=== PATIENT | female | born 1935 | race Caucasian/White ===

== ENCOUNTER 2023-03-09 13:49 | Outpatient (CLI) | payer MEDICARE, OTHER, SELFPAY ==
--- NOTE | 2023-03-09 14:30 | MR_ITS ---
WS: [id number] MRI LUMBAR SPINE NONCONTRAST HISTORY: pain COMPARISON: None available. TECHNIQUE: Sagittal and axial multisequence imaging is submitted. Mild anterior wedging of T5. Mild LEFT curvature lumbar spine. Severe disc space narrowing and degeneration at L2-3. Marrow edema within the L2 and L3 vertebral bod ies. There is no fluid along the disc space to suggest discitis. Mild anterior wedging of L4. Mild an terior wedging of L1. Conus terminates normally at L1-2 disc level. L1-L2: Normal. L2-L3: Marked annular disc bulging with ligamentum flavum hypertrophy and facet arthritis. Disc asymm etrically extends to the LEFT. Moderate bilateral foraminal stenosis, RIGHT greater than LEFT. Modera te central and subarticular recess encroachment. Most significant encroachment upon the traversing L3 nerve roots. L3-L4: Marked annular disc bulging and osteophytic ridging with severe ligamentum flavum and facet hy pertrophy. Mild osteophytic ridging. Severe central and bilateral subarticular recess stenosis. Moder ate bilateral foraminal stenosis. Most significant encroachment upon the traversing L4 nerve roots. L4-L5: Marked annular disc bulging with severe ligamentum flavum and facet arthritis. Trefoil appeara nce of the thecal sac. There is again subarticular recess encroachment. Traversing L5 nerve roots are being displaced. Severe central with bilateral subarticular recess and moderate foraminal stenosis. L5-S1: Mild annular disc bulging and osteophytic ridging. Small foraminal osteophytes. Mild encroachm ent upon the subarticular recesses and S1 nerve roots. There is a small disc protrusion in the RIGHT subarticular recess. Mild RIGHT renal atrophy. Incompletely visualized abdominal aorta. Possible aneurysm. MR/MR lumbar spine wo con* [id number] IMPRESSION: 1. Large amount of edema within the L3 and L4 vertebral bodies. Probably react sylvia edema. Osteomyelitis is not completely excluded but there is no fluid in th e disc to suggest discitis. 2. Multilevel significant central and bilateral subarticular recess stenosis. 3. Severe central with bilateral subarticular recess stenosis at L3-4 and L4-5 and moderate foraminal narrowing. There is significant encroachment upon the t raversing L4 and L5 nerve roots respectively. 4. Moderate bilateral foraminal stenosis at L2-3, RIGHT greater than LEFT. Mod erate central and subarticular recess encroachment. Most significant encroachme nt upon the traversing L3 nerve roots. 5. Possible small disc protrusion in the RIGHT subarticular recess at L5-S1. 6. Mild chronic anterior wedging of L1 and L4.
== END 2023-03-09 13:50 | disposition home or self-care (01) ==
LOC: RAD 13:52
PROVIDERS: PCP Nurse Practitioner Family; Visit Provider Physician Assistant
DX: M16.11 Unilateral primary osteoarthritis, right hip (principal); M51.36 Other intervertebral disc degeneration, lumbar region; S32.010A Wedge compression fracture of first lumbar vertebra, initial encounter for closed fracture; X58.XXXA Exposure to other specified factors, initial encounter; M48.061 Spinal stenosis, lumbar region without neurogenic claudication
CPT/HCPCS: 72148

== ENCOUNTER → 2023-04-02 13:37 | Outpatient (BNVA) | payer MEDICARE, OTHER, SELFPAY | PROVIDERS: PCP Nurse Practitioner Family; Visit Provider Physician Assistant | DX: M54.9 Dorsalgia, unspecified (principal); M25.561 Pain in right knee | CPT/HCPCS: 73560; 99213 ==

== ENCOUNTER → 2023-05-18 10:09 | Outpatient (BNVA) | payer MEDICARE, OTHER, SELFPAY | PROVIDERS: PCP Nurse Practitioner Family; Visit Provider Anesthesiology Pain Medicine | DX: M48.061 Spinal stenosis, lumbar region without neurogenic claudication (principal); M79.604 Pain in right leg; M79.605 Pain in left leg | CPT/HCPCS: 99213 ==

== ENCOUNTER → 2023-06-18 10:45 | Outpatient (BNVA) | payer MEDICARE, OTHER, SELFPAY | PROVIDERS: PCP Nurse Practitioner Family; Visit Provider Anesthesiology Pain Medicine | DX: M48.061 Spinal stenosis, lumbar region without neurogenic claudication (principal) | CPT/HCPCS: 99214 ==

== ENCOUNTER → 2023-07-13 13:01 | Outpatient (BNVA) | payer MEDICARE, OTHER, SELFPAY | PROVIDERS: PCP Nurse Practitioner Family; Visit Provider Anesthesiology Pain Medicine | DX: M47.816 Spondylosis without myelopathy or radiculopathy, lumbar region (principal) | CPT/HCPCS: 64493; 64494; 64495; J1030; J3490 ==

== ENCOUNTER → 2023-07-27 08:51 | Outpatient (BNVA) | payer MEDICARE, OTHER, SELFPAY | PROVIDERS: PCP Nurse Practitioner Family; Visit Provider Anesthesiology Pain Medicine | DX: M48.061 Spinal stenosis, lumbar region without neurogenic claudication; M16.11 Unilateral primary osteoarthritis, right hip | CPT/HCPCS: 99214 ==

== ENCOUNTER → 2023-08-12 11:10 | Outpatient (BNVA) | payer MEDICARE, OTHER, SELFPAY | PROVIDERS: PCP Nurse Practitioner Family; Visit Provider Anesthesiology Pain Medicine | DX: M17.11 Unilateral primary osteoarthritis, right knee; M48.061 Spinal stenosis, lumbar region without neurogenic claudication | CPT/HCPCS: 20610; 99214; J1030; J3490 ==

== ENCOUNTER → 2023-08-20 09:12 | Outpatient (BNVA) | payer MEDICARE, OTHER, SELFPAY | PROVIDERS: PCP Nurse Practitioner Family; Visit Provider Nurse Practitioner Family | DX: I10 Essential (primary) hypertension (principal) | CPT/HCPCS: 80053; 80061 ==

== ENCOUNTER → 2023-09-03 13:33 | Outpatient (BNVA) | payer MEDICARE, OTHER, SELFPAY | PROVIDERS: PCP Nurse Practitioner Family; Visit Provider Nurse Practitioner Family | DX: D22.5 Melanocytic nevi of trunk (principal); L81.4 Other melanin hyperpigmentation; L85.3 Xerosis cutis; L57.0 Actinic keratosis | CPT/HCPCS: 17004; 99213 ==

== ENCOUNTER → 2023-09-09 10:51 | Outpatient (BNVA) | payer MEDICARE, OTHER, SELFPAY | PROVIDERS: PCP Nurse Practitioner Family; Visit Provider Anesthesiology Pain Medicine | DX: M25.561 Pain in right knee (principal); M48.061 Spinal stenosis, lumbar region without neurogenic claudication | CPT/HCPCS: 99214 ==

== ENCOUNTER → 2023-12-10 13:02 | Outpatient (BNVA) | payer MEDICARE, OTHER, SELFPAY | PROVIDERS: PCP Nurse Practitioner Family; Visit Provider Anesthesiology Pain Medicine | DX: M17.11 Unilateral primary osteoarthritis, right knee (principal); S89.90XA Unspecified injury of unspecified lower leg, initial encounter; S89.91XA Unspecified injury of right lower leg, initial encounter; X58.XXXA Exposure to other specified factors, initial encounter; M48.061 Spinal stenosis, lumbar region without neurogenic claudication | CPT/HCPCS: 20610; 99214; J1030; J3490 ==

== ENCOUNTER → 2023-12-29 13:24 | Outpatient (BNVA) | payer MEDICARE, OTHER, SELFPAY | PROVIDERS: PCP Nurse Practitioner Family; Referring Provider Anesthesiology Pain Medicine; Visit Provider Physician Assistant | DX: M25.561 Pain in right knee (principal); M17.11 Unilateral primary osteoarthritis, right knee | CPT/HCPCS: 73560; 73565; 99204 ==

== ENCOUNTER → 2024-02-02 14:41 | Outpatient (BNVA) | payer MEDICARE, OTHER, SELFPAY | PROVIDERS: PCP Nurse Practitioner Family; Visit Provider Family Medicine | DX: Z01.818 Encounter for other preprocedural examination (principal) | CPT/HCPCS: 80053; 81003; 85025 ==

== ENCOUNTER 2024-02-05 14:19 | Outpatient (CLI) | payer MEDICARE, OTHER, SELFPAY ==
--- NOTE | 2024-02-05 15:00 | CT_ITS ---
WS: [id number] CT RIGHT KNEE, NONCONTRAST TECHNIQUE: Noncontrast CT of the RIGHT knee to include the RIGHT hip and ankle. [facility] CLINICAL INFORMATION: M17.11 - Unilateral primary osteoarthritis, right knee COMPARISON: None. DLP: [id number] scans at [facility] use at least one of these dose optimization techniques: automated e xposure control; mA and/or kV adjustment per patient size (includes targeted exams where dose is matc hed to clinical indication); or iterative reconstruction. FINDINGS: Advanced tricompartmental arthritis RIGHT knee. Hypertrophic patella. Tiny suprapatellar ef fusion. Prior postoperative changes LEFT TKA. Intramedullary mukesh and screw fixation LEFT hip. Osteopenia. Mod erate to advanced joint arthritis RIGHT hip. Sigmoid diverticulosis. Vascular calcification. IMPRESSION: Images obtained for preoperative purposes.
== END 2024-02-05 14:20 | disposition home or self-care (01) ==
LOC: RAD 14:20
PROVIDERS: PCP Nurse Practitioner Family; Visit Provider Student in an Organized Health Care Education/Training Program
DX: M17.11 Unilateral primary osteoarthritis, right knee (principal)
CPT/HCPCS: 73700

== ENCOUNTER 2024-02-15 14:36 | Inpatient (IN) | payer MEDICARE, OTHER, SELFPAY ==
[2024-02-15] VITALS (16 sets, daily range): BP systolic 73–156; BP diastolic 47–86; PULSE 60–87; RESP 16–18; TEMP 36.1–36.9; O2SAT 94–98; BMI 29.2
--- NOTE | 2024-02-15 10:19 | ANES.PREANE2 ---
Pre-Anesthetic Assessment Height/Weight: Height 1.6 m Operation Date: 02/15/24 11:40 Proposed Procedures p Mendez Robot Total Knee Arthroplasty(Right) - Rashad Martinez DO Familial anesthetic complications: None Was Beta Diamond taken within 24 hours: N/A Was Clonidine taken within 24 hours: N/A Last intake: > 8 hrs Social No alcohol and No tobacco Exam alert, oriented x 3, clear to auscultation bilaterally and regular rate & rhythm Airway Mallampati: Class II Dentition: other (multiple missing) Pulmonary Asthma CV/HEM Hypertension RBBB GI Gastroesophageal Reflux Disease Anesthetic Plan ASA status: 3 Anesthesia: Regional (specify below) Risk of > 500 ml blood loss (7ml/kg in children): No Medications/Allergies Home Medications Medication Instructions Recorded Confirmed Last Taken Type rollator walker #1 ea 03/20/23 01/13/24 Unknown Rx acetaminophen 325 mg capsule 325 mg PO QID PRN Pain 04/23/23 02/15/24 02/14/24 History montelukast 10 mg tablet 10 mg PO QDAY #90 tabs 07/13/23 02/12/24 02/12/24 Rx (Singulair) potassium chloride 20 mEq 20 meq PO DAILY #90 tabs 07/17/23 02/15/24 02/14/24 Rx tablet,extended release(part/cryst) (Klor-Con M) propranolol 80 mg capsule,24 80 mg PO QDAY #90 caps 07/17/23 02/15/24 02/15/24 Rx hr,extended release simvastatin 10 mg tablet See Rx Instructions .Route 07/17/23 02/15/24 02/14/24 Rx .COMPLEX #90 tabs Hinged Knee Brace #1 ea 09/09/23 01/13/24 Unknown Rx denosumab 60 mg/mL subcutaneous 60 mg SUBCUT .every six months 09/18/23 02/12/24 Unknown Rx syringe (Prolia) osteoporosis #1 mL olopatadine 0.1 % eye drops See Rx Instructions .Route 11/03/23 02/15/24 02/14/24 Rx .COMPLEX #5 mL tolterodine 4 mg capsule,extended 4 mg PO QDAY #90 caps 12/07/23 02/15/24 02/15/24 Rx release 24 hr (Detrol LA) esomeprazole magnesium 40 mg See Rx Instructions .Route 01/11/24 02/15/24 02/15/24 Rx capsule,delayed release .COMPLEX #90 caps buspirone 7.5 mg tablet 7.5 mg PO DAILY #90 tabs 01/13/24 02/15/24 02/14/24 Rx zolpidem 10 mg tablet 10 mg PO DAILY PRN insomnia #30 01/13/24 02/15/24 02/14/24 Rx tabs Allergies Allergy/AdvReac Type Severity Reaction Status Date / Time Iodinated Contrast Media Allergy Unknown Verified 02/12/24 12:38 Sulfa (Sulfonamide Allergy unknown Verified 02/12/24 12:38 Antibiotics) [facility] Anesthesia Medical History Closed hip fracture requiring operative repair Hyperlipidemia Hypokalemia Asthma Gastroesophageal reflux disease Surgical History Hx of cholecystectomy Family History Father No family history of disorders Other Right knee pain Social History Smoking and tobacco/nicotine status: never used tobacco/nicotine Alcohol intake: never Substance/Drug Use: never Adopted: No Caregiver/support person: No Lives independently: Yes service: No Current occupational status: retired Do you think of yourself as: Straight/Heterosexual Current gender identity: Female Data Anesthesia 02/15/24 10:35 02/15/24 10:35 Cardiac Studies: No Data to Display
[2024-02-15] MEDS: ketorolac 30 mg/mL INJ IVP (10:48)
[2024-02-15] MEDS: lactated ringers 500 ML IV (10:48)
[2024-02-15 10:51] LABS: Basophils % 0.5 %; Eosinophils # 0.4 10^3/uL (0.0-0.8); Eosinophils % 4.5 %; Hematocrit 38.9 % (36-47); Lymphocytes # 2.1 10^3/uL (0.8-4.8); Mean Corpuscular HGB Conc 32.6 g/dL (30-55); Mean Platelet Volume 10.7 fL (7.4-10.4); Monocytes # 0.8 10^3/uL (0.2-0.9); Monocytes % 9.7 %; Neutrophils # 4.65 10^3/uL (1.8-7.7); Neutrophils % 58.8 %; Nucleated Red Blood Cells % 0 %; Platelet Count 243 10^3/cmm (157-399); Red Blood Count 4.23 10^6/uL (3.85-5.65); Red Cell Distribution Width 14.8 % (12.1-15.1); White Blood Count 7.92 10^3/uL (3.29-11.43)
--- NOTE | 2024-02-15 11:00 | ANES.PROC ---
Anesthesia Procedures Procedure/Date: 02/15/24 Nerve Block ^: Nerve Block 1: Main Anesthesia: spinal anesthesia block Time Out Performed: Yes Consent: requested by attending/covering physician, from patient, from other, risks and benefits reviewed and patient agrees to proceed Nerve block location: adductor canal (R) Anesthesia monitors applied: pulse oximetry, EKG, BP cuff and oxygen Nerve block position: supine Anesthetic Used: ropivicaine 0.5% (30 ml) Ultrasound used to: recognize landmarks and visualize and ID femerol nerve Nerve Stimulator Used?: No Interscalene/Femoral BLK: 4 stimuplex 21 g needle used for position and inplane approach, visualize local anesthetic spread and no vascular puncture identified Injection: neg aspiration of heme Patient Tolerated Procedure: well Complications: none
[2024-02-15] MEDS: scopolamine 1.5 Patch 1 PATCH TRANSDERMA (11:05)
[2024-02-15] MEDS: sodium chloride 0.9% 1,000 ML 30 ML IV (11:06)
[2024-02-15] MEDS: acetaminophen 1,000 MG/100 ML PIGGYBACK 400 MG IV ×3 (11:06→23:35)
--- NOTE | 2024-02-15 11:12 | PM.HP ---
Providers/Chief Complaint Admitting Physician: Rashad Martinez DO Primary Care Provider: GALINA Emanuel Chief Complaint: M17.11 History of Present Illness Ashly Lynn is a 88 year old female patient has severe right knee degenerative joint disease with significant pain she is failed conservative treatment and is here today for right total knee arthroplasty. No change in overall health. Denies any urinary symptoms. Cleared our preoperative clearance process. Review of Systems General: Reports: 10 or more systems reviewed and unremarkable except in HPI and below Medications/Allergies Home Medications Medication Instructions Recorded Confirmed Last Taken Type rollator walker #1 ea 03/20/23 01/13/24 Unknown Rx acetaminophen 325 mg capsule 325 mg PO QID PRN Pain 04/23/23 02/15/24 02/14/24 History montelukast 10 mg tablet 10 mg PO QDAY #90 tabs 07/13/23 02/12/24 02/12/24 Rx (Singulair) potassium chloride 20 mEq 20 meq PO DAILY #90 tabs 07/17/23 02/15/24 02/14/24 Rx tablet,extended release(part/cryst) (Klor-Con M) propranolol 80 mg capsule,24 80 mg PO QDAY #90 caps 07/17/23 02/15/24 02/15/24 Rx hr,extended release simvastatin 10 mg tablet See Rx Instructions .Route 07/17/23 02/15/24 02/14/24 Rx .COMPLEX #90 tabs Hinged Knee Brace #1 ea 09/09/23 01/13/24 Unknown Rx denosumab 60 mg/mL subcutaneous 60 mg SUBCUT .every six months 09/18/23 02/12/24 Unknown Rx syringe (Prolia) osteoporosis #1 mL olopatadine 0.1 % eye drops See Rx Instructions .Route 11/03/23 02/15/24 02/14/24 Rx .COMPLEX #5 mL tolterodine 4 mg capsule,extended 4 mg PO QDAY #90 caps 12/07/23 02/15/24 02/15/24 Rx release 24 hr (Detrol LA) esomeprazole magnesium 40 mg See Rx Instructions .Route 01/11/24 02/15/24 02/15/24 Rx capsule,delayed release .COMPLEX #90 caps buspirone 7.5 mg tablet 7.5 mg PO DAILY #90 tabs 01/13/24 02/15/24 02/14/24 Rx zolpidem 10 mg tablet 10 mg PO DAILY PRN insomnia #30 01/13/24 02/15/24 02/14/24 Rx tabs Allergies Allergy/AdvReac Type Severity Reaction Status Date / Time Iodinated Contrast Media Allergy Unknown Verified 02/12/24 12:38 Sulfa (Sulfonamide Allergy unknown Verified 02/12/24 12:38 Antibiotics) PFSH Acute PFSH: Medical History Closed hip fracture requiring operative repair Hyperlipidemia Hypokalemia Asthma Gastroesophageal reflux disease Surgical History Hx of cholecystectomy Family History Father No family history of disorders Other Right knee pain Social History Smoking and tobacco/nicotine status: never used tobacco/nicotine Alcohol intake: never Substance/Drug Use: never Adopted: No Caregiver/support person: No Lives independently: Yes service: No Current occupational status: retired Do you think of yourself as: Straight/Heterosexual Current gender identity: Female Vitals/I&O/Wt Last Vital Signs Temp 97.7 F 02/15/24 10:27 Pulse 70 02/15/24 10:27 Resp 16 02/15/24 10:27 BP 116/79 02/15/24 11:05 Pulse Ox 98 02/15/24 10:27 O2 Del Method Room Air 02/15/24 10:27 Weight last 48 hrs Weight 165 lb Physical Exam Narrative: Examination of the right knee demonstrates no wounds or swelling or signs of infection. Mild palpable joint effusion decreased knee range of motion pain with diffusely about the knee with a 5 degree varus deformity clinically. Right lower extremity warm well-perfused Data 02/15/24 10:35 02/15/24 10:35 A&P Assessment and plan (1) Degenerative joint disease of right knee: Plan Plan to proceed to the OR today for right total knee arthroplasty Mendez robotic assisted. Patient understands incidence procedure the risk benefits complication alternatives with surgery. Risk of surgery include not limited to make a better make it worse injury to nerves vessels or tendons, arthrofibrosis, infection, wound issues. Understanding risk of surgery she elects to proceed all questions answered at this time. Attestations Medical Necessity Statement*: Status post right total knee arthroplasty, ongoing postoperative care given patient's age and comorbidities. Coding Level of Care Code Acute Code for [facility] Diagnoses Degenerative joint disease of right knee M17.11
[2024-02-15 11:23] LABS: Anion Gap 15.6 (5-19); Blood Urea Nitrogen 18 mg/dL (8-23); Calcium 9.6 mg/dL (8.5-10.5); Carbon Dioxide 26 mmol/L (22-29); Chloride 97 mmol/L (98-107); Creatinine Clr Calc Pharmacy 41.0602; Glucose 81 mg/dL (65-115); Osmolality Calculated 279 mOsm/kg (285-295); Potassium 4.6 mmol/L (3.5-5.1); Sodium 134 mmol/L (136-145)
[2024-02-15] MEDS: ceFAZolin 2,000 MG in sodium chloride 0.9% (plus) 50 ML 100 MG IV ×2 (11:39→18:37)
[2024-02-15] MEDS: tranexamic acid 1,000 mg/10mL SDV 1000 MG IV (12:20)
[2024-02-15] MEDS: tranexamic acid 1,000 mg/10mL SDV 1000 MG XX (12:53)
[2024-02-15] MEDS: ROPivacaine 0.2% Premix 100 mL 200 MG INTRA-ARTI (12:53)
[2024-02-15] MEDS: EPINEPHrine 1 mg/mL INJ XX (12:53)
[2024-02-15] MEDS: ketorolac 30 mg/mL INJ XX (12:53)
--- NOTE | 2024-02-15 14:18 | W.PM.BPON ---
Date of Procedure: 02/15/2024 Surgeon: Rashad Martinez DO Technical Support Director(s): Albert Martinez PA-C Procedure(s) performed: Right total knee arthroplasty?Mendez robotic assisted Findings of the procedure(s): Right knee degenerative joint disease, procedure went as planned without any issues or complications underwent successful right total knee arthroplasty Estimated blood loss: 125 mL Specimen(s) removed: Tibia, patella and femur bone cuts removed Post-operative diagnosis: Right knee severe degenerative joint disease
--- NOTE | 2024-02-15 14:19 | P.OP_ITS ---
Operative Report Date of procedure: February 15, 2024 Surgeon: Rashad Martinez DO Property Developer: Albert Martinez PA-C: PA was necessary for assistance in this case with leg positioning retraction and protection of neurovascular structures as well as assistance in implantation wound closure and dressing application. Anesthesia: Spinal Procedure: Preoperative diagnosis: Right knee degenerative joint disease post-op diagnosis: Same Procedure done: Right total knee arthroplasty, cemented?robotic assisted Mendez Implants: Hartland triathlon size 4 femur CR cemented?right João triathlon size? 3 tibia universal baseplate cemented João triathlon asymmetric patella size 29 mm Hartland triathlon polyethylene 9mm Surgeon: Rashad Martinez DO Estimated blood loss: 125 mL Tourniquet 14minutes IV fluids: 1000 mL Urine output: 600mL Complications: None Condition: stable Disposition: floor Brief History: Patient is a 88-year-old female with with chronic?right knee degenerative joint disease.? Patient has been worked up in the outpatient setting in the orthopedic office at this point time through shared decision making given his [id number] arthritis as well as failed conservative treatment, and pt would like to proceed with a?right total knee arthroplasty.? Through shared decision making elected to proceed with surgical intervention for?right total knee arthroplasty.? We talked about continued conservative treatment and surgical intervention as far as the?risk benefits complications alternatives surgical and nonsurgical treatment options.? At this point time understanding patient?risks with surgery he agrees to proceed with surgical intervention.? Once again??risk with surgery include but are not limited to make it better make it worse blood clot, heart attack, stroke, on the table, infection, injury to nerves or vessels, persistent pain, arthrofibrosis, implant failure.? Understanding these?risks patient agrees to proceed with surgical intervention consent was obtained in the office.? All questions answered. Procedure: Patient was seen and evaluated in the preoperative holding area.? Consent was?reviewed and signed with patient with plan for?right total knee arthroplasty.? All questions answered.? Correct extremity marked.? Patient seen and evaluated by the anesthesia department and once cleared for surgery was taken back to the operative suite.? Patient was placed into a supine position on the OR table.? All bony prominences were well-padded.? Patient was appropriately secured to the bed.? Patient underwent anesthesia per the anesthesia department.? Patient?received spinal anesthesia and? Fajardo catheter was placed.? A nonsterile tourniquet was applied to the?right thigh.? At this point in time a final timeout performed.? Patient?received appropriate preoperative antibiotics and TXA. Next the?right lower extremity was then prepped and draped in standard orthopedic fashion. Esmarch tourniquet was used exsanguinate the?right lower extremity.? Tourniquet was insufflated to 250 mmHg. A standard anterior incision was made over midline of the knee.? Sharp scalpel excision through skin and subcutaneous tissue full-thickness skin flaps were made.? Fascia was elevated off of the extensor?retinaculum was stable with medial parapatellar arthrotomy was then made.? The performed standard s equential?releases..? Immediately on entry into the joint patient was found to have severe eburnated bone and tricompartmental arthritic changes noted.? With significant osteophyte formation.? Next the the patella was then stuffed and the knee was then flexed.?? After 14 minutes with tourniquet being up it was found to be a venous tourniquet and it was subsequently left down throughout the entirety of the case. Maria Elena was placed superiorly around the anterior aspect of the femur this was freed of synovium and I subsequently then placed by 2 femur pins to establish my femur arrays for the [employer]?robot.? These were then placed bicortically and? femur array was then appropriately secured with appropriate visualization.? Next attention was turned towards the tibial?rays.? These were then drilled sequentially bicortically in parallel fashion and intraincisional.? I then placed my guide as well as my tibial array on in place.? This was appropriately secured and had excellent visualization with the [employer]?robot.? Next the tibial checkpoint as well as femur checkpoint were then placed.? At this point time I then subsequently established my head center as well as my medial lateral malleoli as well as my checkpoints.? Next utilizing standard Mendez technology I then mapped out the appropriate points and confirmation points around the femur as well as the tibia in standard fashion.? Once this was then done I then?removed all osteophytes in preparation for dynamic testing.? All osteophytes were?removed as well as I?removed the ACL and the PCL was excised due to its significant tearing and degeneration noted.? At this point time the knee was brought into full extension and we performed our standard evaluation of our gap balancing stressing his ligaments and extension as well as flexion appropriate adjustments were made to have appropriate gap balancing in both flexion and extension.? This plan for final counts.? We get a preoperative plan evaluating our implants which was a size 4 femur and a size 3 tibia.? Next we brought in the Mendez?robot and sequentially made our femur cuts.? All excess bony cuts were then?removed.? Finally we made our tibial cut.? Once this was done a standard PCL?retractor was then placed into this position I excised the medial and lateral meniscus.? The tibial cut was then subsequently?removed all excess bony debris was?removed.? I then utilized a lamina tibco developer and?remove the posterior osteophytes.? At this point time sized the tibia and confirmed this was a size 3.? I utilized our blunt probe to establish?rotation of tibial implant.? Once this was done I then placed my tibia size 3 trial in appropriate position and then subsequently placed tibial pins to hold this into place placed a size 9 mm poly as well as a size 4 femur which was appropriately impacted in place knee was then subsequently brought into extension. Trials were then assessed, this was stable with varus valgus stress in extension as well as had symmetrical translation when brought into flexion demonstrating symmetrical gaps. I had excellent balance gaps in flexion and extension with varus and valgus stresses.? At this point I was satisfied with these implants these were then verified and opened on the back table size 3 tibia, size4 femur,? size 9 mm polythickness.? We did confirm appropriate gap balancing and stresses as well as alignment utilizing? Mendez and were satisfied with this plan.? ?At this point time with my trials in place I then towel clip the patella everted this made appropriate measurements subsequently utilizing freehand technique performed by patellar?resurfacing this was confirmed to be appropriate?resection and subsequently sized to be a 29 mm asymmetric.? My drill peg guides were then clamped and appropriate position and appropriate position in the patella for appropriate tracking and parallel with the joint.? Pegs were drilled trial implant was placed and the knee was then subsequently?ranged and found to have excellent patellar tracking.? Femur pegs were then drilled.? Satisfied with our tibial placement?rotation I then utilized the keel punch and prepped the tibia.? At this point time all of our trial implants were?removed.? All checkpoints as well as guidepins and arrays were?removed and appropriate counts made.? The wound bed? was thoroughly irrigated and dried and prepped for cementation.? Cement was mixed on the back table.? Once cement was?ready this was then covered onto the tibia and the tibial baseplate was then impacted and all excess cement was?removed.? Next the polyethylene was then impacted into place on the tibial baseplate.? Next cement was placed onto the femur as well as under the femur implants and impacted in to place and all excess cement was extruded and?removed.? Knee was taken into full extension? to clear all excess cement was?removed.? Warm saline was placed over the joint.? I then towel clip patella and dried for cementation. cemented the patella into place.? This was all clamped and the cement was allowed to cure.? Thorough irrigation performed with pulse lavage.? I then placed my periarticular injection while the cement was curing.? Once cured the knee was taken through?range of motion and had excellent stability and gaps were balanced in flexion and extension.? Tourniquet was then deflated. hemostasis satisfactory with electrocautery.? Next I then subsequently closed the capsule with Ethibond suture as well as a?running strata fix suture.? Knee was then taken through?range of motion 30 times.? Next the skin was then closed in layered fashion of?running stratifix sutures of deep and subcutenous tissue and skin.? ?closed in flexion and Prineo glue was then placed over the incision this allowed to cure.? Incision was covered with Silverlon, with ABDs soft?roll and Heriberto wrap.? Patient was then awakened from anesthesia and taken to PACU in stable condition. Disposition: Patient taken to PACU in stable condition will be admitted to the floor for pain control PT/OT weight-bear as tolerated?right lower extremity dressing changes as needed, DVT prophylaxis. Pain control. Patient will?receive appropriate postoperative antibiotics. patient will be seen today by the internal medicine team for medical management.? Patient will follow up with the office in 2 weeks.? Patient understands agrees with current plan.? All questions answered.
--- NOTE | 2024-02-15 14:28 | PM.PACU ---
PACU note Narrative: Patient is an 88 -year-old female just underwent a right total knee arthroplasty. Pt transferred to PACU in stable condition. Dressing is dry. pt is awake and alert. pt can wiggle toes and plantarflex and dorsiflex foot. pt able to perform straight leg raise, Femoral nerve intact. Distal tibial pulses are palpable toes are warm and well-perfused. Cap refill is normal and under 2 seconds. Sensation to foot is intact. Pain is controlled. Exam: awake Disposition: admitted
--- NOTE | 2024-02-15 14:35 | XRR_ITS ---
PROCEDURE INFORMATION: Exam: XR Right Knee Exam date and time: 02/15/2024 1:38 PM Age: 88 years old Clinical indication: Device placement; Joint replacement hardware; Prior surgery; Surgery date: Post-operative (0-2 days); Surgery type: S/P tka R; Additional info: S/P tka R, 2 views submitted, changed to 2 view TECHNIQUE: Imaging protocol: Radiologic exam of the right knee. Views: 1 or 2 views. COMPARISON: CT knee RT [facility] [id number] 02/05/2024 2:55 PM FINDINGS: Bones/joints: No fracture or dislocation or hardware complication. Soft tissues: Postsurgical changes of the soft tissues. Extensive vascular calcifications. XR/XR knee RT 1-2V [id number] IMPRESSION: No hardware complication.
--- NOTE | 2024-02-15 15:02 | SUR.PHASEI ---
15:00 GOOD ROM AND SENSATION OF RIGHT FOOT.PT ASSESSED BY DOCTOR Rush.
--- NOTE | 2024-02-15 15:25 | ANE.PACU2 ---
Inpatient post-anesthesia follow up: Airway intact: Yes Vital signs: Temperature 98.0 F Pulse Rate 67 Respiratory Rate 16 Blood Pressure 96/63 Pulse Oximetry 96 Oxygen Delivery Me thod Room Air Oxygen Flow Rate Fraction of Inspir ed Oxygen Hydration adequate: Yes Nausea and vomiting: No Pain level: 1 Mental status: Baseline
--- NOTE | 2024-02-15 15:47 | P.CONIM_ITS ---
Providers/Reason For Consult 2 Consulting Physician/Specialty*: Dr. Churchill/internal medicine Reason for Consult*: Medical comorbidities Attending Physician: Rashad Martinez DO Primary Care Provider: GALINA Emanuel History of Present Illness History of Present Illness Ashly Lynn is a 88 year old female with past medical history of hypertension, osteoarthritis who underwent right total knee arthroplasty with orthopedic team today. Patient had an estimated blood loss of around 125 cc. Medical team is requested to manage medical comorbidities. Procedure done under spinal anesthesia. On examination patient is awake and alert. Denies any nausea vomiting, headache, saturating well on room air. States she checks her bp at home and usually runs around 110/70s. Denies any problems right now. Review of Systems 2 General: Reports: 10 or more systems reviewed and unremarkable except in HPI and below Const: Denies: fever(s), chills, body aches, change in appetite, change in weight, malaise, night sweats, diaphoresis, change in sleep pattern, daytime sleepiness or snoring Eyes: Denies: change in vision, blurry vision, photophobia, eye discomfort or eye discharge ENMT: Denies: throat pain, enlarged tonsils, hoarseness, mouth pain, oral sores, dry mouth, tinnitus, nasal congestion or post nasal drip Card: Denies: chest pain, palpitations, irregular heart rhythm, edema, swelling of feet/ankles, lightheadedness, syncope, pre-syncope, dyspnea on exertion, orthopnea, leg pain with exertion or acrocyanosis Resp: Denies: dyspnea, productive cough, non-productive cough, wheezing, stridor, pain on inspiration, change in phlegm color, hemoptysis or chest congestion GI: Denies: abdominal pain, nausea, vomiting, hematemesis, coffee ground emesis, dysphagia, heartburn, diarrhea, constipation, bloating, GI cramping, change in bowel habits, pain on defecation, hematochezia or melena : Denies: flank pain, dysuria, urinary frequency, urinary urgency, urinary hesitancy, nocturia or hematuria Musc: Denies: neck pain, back pain, extremity pain, joint pain, joint swelling, joint redness, joint stiffness or limited range of motion Neuro: Denies: headache(s), numbness in extremities, weakness in extremities, sensory changes, lack of coordination, difficulty walking, frequent falls, dizziness, vertigo, confusion, Slurred speech present, difficulty communicating thoughts or seizure-like activity Psych: Denies: anxiety, depression, mood swings, panic attacks, hopelessness or irritability Endo: Denies: polyuria, polydipsia, tired all the time, cold intolerance, excessive sweating, flushing or heat intolerance Mason/Lymph: Denies: easy bruising or easy bleeding All/Imm: Denies: tongue swelling, facial swelling or acute wheezing Medications/Allergies Home Medications Medication Instructions Recorded Confirmed Last Taken Type rollator walker #1 ea 03/20/23 01/13/24 Unknown Rx acetaminophen 325 mg capsule 325 mg PO QID PRN Pain 04/23/23 02/15/24 02/14/24 History montelukast 10 mg tablet 10 mg PO QDAY #90 tabs 07/13/23 02/12/24 02/12/24 Rx (Singulair) potassium chloride 20 mEq 20 meq PO DAILY #90 tabs 07/17/23 02/15/24 02/14/24 Rx tablet,extended release(part/cryst) (Klor-Con M) propranolol 80 mg capsule,24 80 mg PO QDAY #90 caps 07/17/23 02/15/24 02/15/24 Rx hr,extended release simvastatin 10 mg tablet See Rx Instructions .Route 07/17/23 02/15/24 02/14/24 Rx .COMPLEX #90 tabs Hinged Knee Brace #1 ea 09/09/23 01/13/24 Unknown Rx denosumab 60 mg/mL subcutaneous 60 mg SUBCUT .every six months 09/18/23 02/12/24 Unknown Rx syringe (Prolia) osteoporosis #1 mL olopatadine 0.1 % eye drops See Rx Instructions .Route 11/03/23 02/15/24 02/14/24 Rx .COMPLEX #5 mL tolterodine 4 mg capsule,extended 4 mg PO QDAY #90 caps 12/07/23 02/15/24 02/15/24 Rx release 24 hr (Detrol [place]) esomeprazole magnesium 40 mg See Rx Instructions .Route 01/11/24 02/15/24 02/15/24 Rx capsule,delayed release .COMPLEX #90 caps buspirone 7.5 mg tablet 7.5 mg PO DAILY #90 tabs 01/13/24 02/15/24 02/14/24 Rx zolpidem 10 mg tablet 10 mg PO DAILY PRN insomnia #30 01/13/24 02/15/24 02/14/24 Rx tabs Allergies Allergy/AdvReac Type Severity Reaction Status Date / Time Iodinated Contrast Media Allergy Unknown Verified 02/12/24 12:38 Sulfa (Sulfonamide Allergy unknown Verified 02/12/24 12:38 Antibiotics) PFSH Acute 2 PFSH: Medical History Closed hip fracture requiring operative repair Hyperlipidemia Hypokalemia Asthma Gastroesophageal reflux disease Surgical History Hx of cholecystectomy Family History Father No family history of disorders Other Right knee pain Social History Smoking and tobacco/nicotine status: never used tobacco/nicotine Alcohol intake: never Substance/Drug Use: never Adopted: No Caregiver/support person: No Lives independently: Yes service: No Current occupational status: retired Do you think of yourself as: Straight/Heterosexual Current gender identity: Female Vitals/I&O/Wt Last Vital Signs Temp 98.0 F 02/15/24 15:21 Pulse 60 02/15/24 15:21 Resp 16 02/15/24 15:21 BP 96/63 02/15/24 15:21 Pulse Ox 95 02/15/24 15:21 O2 Del Method Room Air 02/15/24 15:21 02/15/24 02/15/24 02/15/24 06:59 14:59 22:59 Intake Total 1050 / 1050 Balance 1050 / 1050 Weight last 48 hrs Weight 74.843 kg Weight 74.843 kg Physical Exam 2 Narrative: General: No acute distress, AO x3 HEENT: PERRLA, pupils bilaterally equal and reactive Chest: Normal vesicular breath sounds, no added sounds, equal good air entry bilaterally CVS: S1-S2 regular, no murmurs, no tachycardia, no gallops, no rubs Abdomen: Soft, nontender, no organomegaly, bowel sounds present Neuro: No focal deficits, no facial deformity, AO x3, power 5/5 in all limbs Data 02/15/24 10:35 02/15/24 10:35 A&P Assessment and plan (1) Encounter for postoperative care: Monitor hemoglobin. Perioperative antibiotics, pain medication, anticoagulation, physical therapy, discharge planning as per primary team. Keep mean artery pressure over 65 with goal blood pressure less than 140/90 mmHg. Oxygen supplementation keeping saturation over 92%. (2) Asthma: Currently on room air. DuoNeb as needed. Plan Hypertension: Goal blood pressure less than 140/90 mmHg. Blood pressure is borderline for now. Hold off on home dose of propranolol. Will restart as per blood pressures. Full code Regular diet when okay with primary team. Eliquis when okay with primary team for DVT prophylaxis Protonix OPD prophylaxis Consult Attestations 2 Medical Necessity Statement: As per primary team. Diagnoses Encounter for postoperative care Z48.89 Asthma J45.909
[2024-02-15] MEDS: lactated ringers 1,000 ML 100 ML IV (16:04)
[2024-02-15] MEDS: mupirocin oint 22 gm 1 APPLIC NASAL (17:12)
[2024-02-15] MEDS: calcium carb-vit d 600mg/400unit 1 Tablet 1 EACH PO (17:13)
[2024-02-15] MEDS: docusate sodium 100 mg Capsule PO (17:13)
[2024-02-15] MEDS: iron polysaccharide complex 150 mg Capsule PO (17:13)
[2024-02-15] MEDS: chlorhexidine gluconate 0.12% Btl 473 mL 30 ML MUCOUS MEM ×2 (17:13→20:36)
[2024-02-15] MEDS: tranexamic acid 1,000 MG/100 ML PREMIX 600 MG IV (17:16)
[2024-02-15] MEDS: HYDROmorphone 1 mg/mL INJ 1 mL 0.5 MG IVP (17:29)
[2024-02-15 18:38] LABS: Iron 95 ug/dL (37-145); Percent Saturation 24.3 % (20-50); Thyroid Stimulating Hormone 4.83 uIU/mL (0.27-4.20); Total Iron Binding Capacity 390 mcg/dl; Unsaturated Iron Binding 295 ug/dL (112-347); Vitamin B12 960 pg/mL (232-1245)
[2024-02-15] MEDS: atorvastatin 40 mg Tablet PO (20:36)
[2024-02-15] MEDS: oxyCODONE 5 mg IR Tab/Cap PO (20:42)
[2024-02-16] VITALS (10 sets, daily range): BP systolic 82–143; BP diastolic 50–85; PULSE 62–91; RESP 15–66; TEMP 36.3–36.8; O2SAT 93–96; BMI 32.9
[2024-02-16] MEDS: oxyCODONE 5 mg IR Tab/Cap PO ×4 (02:05→20:51)
[2024-02-16] MEDS: lactated ringers 1,000 ML 100 ML IV ×2 (02:06→10:55)
[2024-02-16] MEDS: ceFAZolin 2,000 MG in sodium chloride 0.9% (plus) 50 ML 100 MG IV ×2 (03:18→10:55)
[2024-02-16 05:52] LABS: Basophils % 0.1 %; Eosinophils % 0.2 %; Hematocrit 25.8 % (36-47); Lymphocytes # 1.3 10^3/uL (0.8-4.8); Lymphocytes % 12.9 %; Mean Corpuscular HGB Conc 32.9 g/dL (30-55); Mean Corpuscular Volume 91.2 fl (85-98); Mean Platelet Volume 10.8 fL (7.4-10.4); Monocytes # 0.8 10^3/uL (0.2-0.9); Monocytes % 7.6 %; Neutrophils # 7.95 10^3/uL (1.8-7.7); Neutrophils % 78.7 %; Nucleated Red Blood Cells % 0 %; Platelet Count 188 10^3/cmm (157-399); Red Blood Count 2.83 10^6/uL (3.85-5.65); Red Cell Distribution Width 14.6 % (12.1-15.1)
[2024-02-16] MEDS: acetaminophen 1,000 MG/100 ML PIGGYBACK 400 MG IV (06:29)
[2024-02-16 06:35] LABS: Estmated Average Glucose 103; Hemoglobin A1C 5.2 % (4.0-6.0)
[2024-02-16 06:43] LABS: Alanine Aminotransferase 8 U/L (0-33); Albumin Level 3.3 g/dL (3.5-5.2); Alkaline Phosphatase 50 U/L (35-105); Anion Gap 15.4 (5-19); Aspartate Amino Transferase 13 U/L (0-32); Blood Urea Nitrogen 17 mg/dL (8-23); Calcium 8.6 mg/dL (8.5-10.5); Carbon Dioxide 21 mmol/L (22-29); Chloride 106 mmol/L (98-107); Creatinine Clr Calc Pharmacy 39.2592; Globulin 1.9 g/dL (1.3-4.6); Glucose 107 mg/dL (65-115); Osmolality Calculated 288 mOsm/kg (285-295); Potassium 4.4 mmol/L (3.5-5.1); Sodium 138 mmol/L (136-145); Total Bilirubin 0.2 mg/dL (0.15-1.2); Total Protein 5.2 g/dL (6.6-8.7)
[2024-02-16 06:44] LABS: Folate Level 18.5 ng/mL (4.8-37.3)
[2024-02-16] MEDS: pantoprazole DR 40 mg Tablet PO (08:27)
[2024-02-16] MEDS: mupirocin oint 22 gm 1 APPLIC NASAL ×2 (08:27→17:00)
[2024-02-16] MEDS: calcium carb-vit d 600mg/400unit 1 Tablet 1 EACH PO ×2 (08:27→17:00)
[2024-02-16] MEDS: chlorhexidine gluconate 0.12% Btl 473 mL 30 ML MUCOUS MEM (08:27)
[2024-02-16] MEDS: iron polysaccharide complex 150 mg Capsule PO ×2 (08:27→17:00)
[2024-02-16] MEDS: docusate sodium 100 mg Capsule PO ×2 (08:27→17:00)
[2024-02-16] MEDS: multivitamin therapeutic Tablet 1 TAB PO (08:27)
[2024-02-16] MEDS: apixaban 5 mg Tablet 2.5 MG PO ×2 (08:29→17:00)
[2024-02-16] MEDS: BuSPIRONE 10 mg Tablet 7.5 MG PO (08:30)
--- NOTE | 2024-02-16 08:47 | PC.PHAR ---
PT STATES SHE TAKES CARE OF HER OWN MEDICATIONS-PT STATES BEFORE SURGERY SHE WAS TAKING VITAMIN E BUT STATES NOT TAKEN FOR AT LEAST 21 DAYS-PT STATES SHE IS NOW TAKING BUSPAR 7.5MG QAM EXT SHOWS LAST FILLED 11/12/23 90D/S 15MG DAILY-
--- NOTE | 2024-02-16 10:05 | PC.CHAP ---
Pastoral Care Encounter/Spiritual Assessment Type of Contact [] Declined time clock repairer visit [] Patient/Family/Request visit [] Outpatient visit [] Follow-up visit [] Physician referral [] Code/Alert [x] Routine visit [] Staff referral [] Actively dying [] Patient sleeping [] Family support [] [] Out of room [] Palliative care [] [] Receiving care in room [] Pre-surgical visit [] Trauma [] Long length of stay [] ICU visit [] Other: Relational/Emotional Strength [x] Patient feels connected with others/family/visitors/staff [] Distress [] Loneliness/isolation [] Abandonment Spirituality of Patient [x] Person of Marcia [x] Attends Rastafari of their Marcia [x] Believes in Prayer [x] Reads Bible or Jain materials [] There are Spiritual issues to be addressed Working Second Hand Interventions [x] Prayer [x] Active listening [] Non-anxious presence [x] Spiritual/emotional support [] Crisis/trauma care [] Spiritual counseling [] Bereavement support [] Provided bereavement packet [] Provided Bible/devotional materials [] Provided toy/stuffed animal, coloring book to patient or family member [] Provided Communion [] Anointing/[place] [] Salvation [x] Completed spiritual assessment [] Other: Impact on Illness or Injury [] Angry [] Fearful [] Anxious [] Often cries [] Exhaustion [] Unable to work [] Unable to attend christianity [] Unable to walk/stand [] Unable to read [] Unable to drive [] Unable to eat/drink [] Unable to sleep [] Unable to be with family [] Patient intubated [] Other: Summary Time spent with patient 15 min
--- NOTE | 2024-02-16 12:41 | P.PN_ITS ---
Subjective 2 Subjective: Patient seen and examined examined today. Patient got up and work with therapy. No complaints or issues overnight. She has no help at home and plan will be for patient to go to a rehab facility she will require some more therapy here prior to discharge. Vitals/I&O/Wt Last Vital Signs Temp 97.4 F L 02/16/24 09:49 Pulse 77 02/16/24 09:49 Resp 16 02/16/24 11:02 BP 82/50 02/16/24 09:49 Pulse Ox 94 02/16/24 09:49 O2 Del Method Room Air 02/16/24 04:00 02/15/24 02/16/24 02/16/24 22:59 06:59 14:59 Intake Total 1210 / 2260 1250 / 3510 931.667 / 931.667 Output Total 300 / 300 930 / 1230 Balance 910 / 1960 320 / 2280 931.667 / 931.667 Weight last 48 hrs Weight 186 lb 1.6 oz Weight 165 lb Weight 165 lb Physical Exam 2 Narrative: Examination of the right lower extremity dressings on in place clean dry and intact compartments are soft and compressible dressings left on in place. Patient has normal postoperative tenderness and swelling about the right knee. DP pulse palpable 2+. Foot warm well-perfused. Sensation intact light touch distally. Patient able to wiggle toes, plantarflex and dorsiflex ankle. Urinary Catheter Management: Fajardo: Cath Placed During This Visit: yes, but has since been removed by the nurse Reason for Continuing Indwelling Catheter: Decision to DC Catheter Date Urinary Catheter Removed: 02/16/24 Time Urinary Catheter Discontinued: 05:38 Data 02/17/24 05:43 02/16/24 05:30 Xray Ortho: My impression: X-rays of the right knee reviewed in person interpreted myself demonstrating stable right total knee arthroplasty with appropriate cement mantle in position no evidence of periprosthetic fracture or dislocation. A&P Assessment and plan (1) Status post total right knee replacement using cement: Plan X-rays reviewed A.m. labs reviewed Weightbearing as tolerated right lower extremity Pain control DVT prophylaxis PT/OT Complete postoperative antibiotics Discharge planning?planning for SNF placement as patient age and no help at home. Attestations 2 Medical Necessity Statement*: Ongoing postoperative care right total knee arthroplasty Coding Level of Care Code Acute Code for Chg Fwd Diagnoses Status post total right knee replacement using cement Z96.651
[2024-02-16 14:04] LABS: Free T4 Free Thyroxine 1.28 ng/dL (0.82-1.77); T3 Free 1.5 PG/ML (2.0-4.4)
--- NOTE | 2024-02-16 14:19 | P.PN_ITS ---
Subjective 2 Subjective: No acute events overnight. Patient has remained hemodynamically stable and afebrile. Working well with physical therapy. Seen with family at bedside. Patient denies any new complaints. Vitals/I&O/Wt Last Vital Signs Temp 98.2 F 02/16/24 13:37 Pulse 62 02/16/24 13:37 Resp 16 02/16/24 13:37 BP 122/65 02/16/24 13:37 Pulse Ox 95 02/16/24 13:37 O2 Del Method Room Air 02/16/24 04:00 02/15/24 02/16/24 02/16/24 22:59 06:59 14:59 Intake Total 1210 / 2260 1250 / 3510 931.667 / 931.667 Output Total 300 / 300 930 / 1230 Balance 910 / 1960 320 / 2280 931.667 / 931.667 Weight last 48 hrs Weight 84.414 kg Weight 74.843 kg Weight 74.843 kg Physical Exam 2 Narrative: General: No acute distress, AO x3 HEENT: PERRLA, pupils bilaterally equal and reactive Chest: Normal vesicular breath sounds, no added sounds, equal good air entry bilaterally CVS: S1-S2 regular, no murmurs, no tachycardia, no gallops, no rubs Abdomen: Soft, nontender, no organomegaly, bowel sounds present Neuro: No focal deficits, no facial deformity, AO x3, power 5/5 in all limbs Urinary Catheter Management: Fajardo: Cath Placed During This Visit: yes, but has since been removed by the nurse Reason for Continuing Indwelling Catheter: Decision to DC Catheter Date Urinary Catheter Removed: 02/16/24 Time Urinary Catheter Discontinued: 05:38 Data 02/16/24 05:30 02/16/24 05:30 A&P Assessment and plan (1) Encounter for postoperative care: Hemoglobin down to 8.5 today. Repeat hemoglobin in a.m. for further management. Target hemoglobin more than 8. If needed will transfuse PRBC. Perioperative antibiotics, pain medication as per primary team. Eliquis for DVT prophylaxis. Continue physical therapy. Keep mean artery pressure over 65 with goal blood pressure less than 140/90 mmHg. Oxygen supplementation keeping saturation over 92%. (2) Asthma: Currently on room air. DuoNeb as needed. Plan Hypertension: Goal blood pressure less than 140/90 mmHg. Blood pressure is borderline for now. Hold off on home dose of propranolol. Will restart as per blood pressures. As per family ember patient's blood pressures are usually on the softer side during the day but gets elevated on ambulation. She takes propranolol on as needed basis. Full code Regular diet when okay with primary team. Eliquis when okay with primary team for DVT prophylaxis Protonix OPD prophylaxis Discharge planning: Patient wants to go to SNF for further rehabilitation. She lives by herself and is scared that currently she cannot take care of her ADLs. Case management working on the same. Thank you for involving us in care of Ms. Lynn. Please call with any questions. Attestations 2 Medical Necessity Statement*: For postoperative care post knee arthroplasty while safe discharge planning is sought Diagnoses Encounter for postoperative care Z48.89 Asthma J45.909
[2024-02-16] MEDS: atorvastatin 40 mg Tablet PO (20:25)
[2024-02-17] VITALS (12 sets, daily range): BP systolic 87–118; BP diastolic 45–77; PULSE 81–109; RESP 15–18; TEMP 36.5–36.8; O2SAT 93–96
[2024-02-17] MEDS: oxyCODONE 5 mg IR Tab/Cap PO ×4 (03:23→23:22)
[2024-02-17] MEDS: HYDROmorphone 1 mg/mL INJ 1 mL 0.5 MG IVP ×2 (06:04→12:14)
[2024-02-17 06:14] LABS: Basophils % 0.2 %; Eosinophils # 0.2 10^3/uL (0.0-0.8); Eosinophils % 1.3 %; Hematocrit 27.5 % (36-47); Lymphocytes # 1.2 10^3/uL (0.8-4.8); Lymphocytes % 10.2 %; Mean Corpuscular Hemoglobin 29.5 pg (27-33); Mean Corpuscular Volume 92.3 fl (85-98); Mean Platelet Volume 11.4 fL (7.4-10.4); Monocytes # 1.4 10^3/uL (0.2-0.9); Monocytes % 11.9 %; Neutrophils # 8.79 10^3/uL (1.8-7.7); Neutrophils % 75.8 %; Nucleated Red Blood Cells % 0 %; Platelet Count 172 10^3/cmm (157-399); Red Blood Count 2.98 10^6/uL (3.85-5.65); Red Cell Distribution Width 15.1 % (12.1-15.1); White Blood Count 11.59 10^3/uL (3.29-11.43)
[2024-02-17 06:42] LABS: Magnesium 1.8 mg/dL (1.7-2.3)
[2024-02-17] MEDS: apixaban 5 mg Tablet 2.5 MG PO ×2 (08:04→17:39)
[2024-02-17] MEDS: BuSPIRONE 10 mg Tablet 7.5 MG PO (08:04)
[2024-02-17] MEDS: pantoprazole DR 40 mg Tablet PO (08:05)
[2024-02-17] MEDS: calcium carb-vit d 600mg/400unit 1 Tablet 1 EACH PO ×2 (08:05→17:39)
[2024-02-17] MEDS: iron polysaccharide complex 150 mg Capsule PO ×2 (08:05→17:39)
[2024-02-17] MEDS: docusate sodium 100 mg Capsule PO ×2 (08:05→17:39)
[2024-02-17] MEDS: multivitamin therapeutic Tablet 1 TAB PO (08:05)
[2024-02-17] MEDS: chlorhexidine gluconate 0.12% Btl 473 mL 30 ML MUCOUS MEM ×3 (10:19→17:39)
--- NOTE | 2024-02-17 12:54 | P.PN_ITS ---
Subjective 2 Subjective: No acute events overnight. Patient has remained hemodynamically stable and afebrile. Working with physical therapy. No new complaints. Vitals/I&O/Wt Last Vital Signs Temp 98.3 F 02/17/24 08:00 Pulse 87 02/17/24 08:00 Resp 16 02/17/24 12:14 BP 118/77 02/17/24 08:00 Pulse Ox 95 02/17/24 12:14 O2 Del Method Room Air, Trach Collar 02/17/24 08:00 02/16/24 02/17/24 02/17/24 22:59 06:59 14:59 Intake Total 240 / 1545.000 480 / 2025.000 120 / 120 Output Total 500 / 500 Balance 240 / 1545.000 -20 / 1525.000 120 / 120 Weight last 48 hrs Weight 83.597 kg Weight 84.414 kg Weight 74.843 kg Physical Exam 2 Narrative: General: No acute distress, AO x3 HEENT: PERRLA, pupils bilaterally equal and reactive Chest: Normal vesicular breath sounds, no added sounds, equal good air entry bilaterally CVS: S1-S2 regular, no murmurs, no tachycardia, no gallops, no rubs Abdomen: Soft, nontender, no organomegaly, bowel sounds present Neuro: No focal deficits, no facial deformity, AO x3, power 5/5 in all limbs Urinary Catheter Management: Fajardo: Cath Placed During This Visit: yes, but has since been removed by the nurse Reason for Continuing Indwelling Catheter: Decision to DC Catheter Date Urinary Catheter Removed: 02/16/24 Time Urinary Catheter Discontinued: 05:38 Data 02/17/24 05:43 02/16/24 05:30 A&P Assessment and plan (1) Encounter for postoperative care: Hemoglobin down to 8.5 today. Repeat hemoglobin in a.m. for further management. Target hemoglobin more than 8. If needed will transfuse PRBC. Perioperative antibiotics, pain medication as per primary team. Eliquis for DVT prophylaxis. Continue physical therapy. Keep mean artery pressure over 65 with goal blood pressure less than 140/90 mmHg. Oxygen supplementation keeping saturation over 92%. (2) Asthma: Currently on room air. DuoNeb as needed. Plan Hypertension: Goal blood pressure less than 140/90 mmHg. Blood pressure is borderline for now. Hold off on home dose of propranolol. Will restart as per blood pressures. As per family ember patient's blood pressures are usually on the softer side during the day but gets elevated on ambulation. She takes propranolol on as needed basis. Full code Regular diet when okay with primary team. Eliquis when okay with primary team for DVT prophylaxis Protonix OPD prophylaxis Discharge planning: Patient wants to go to SNF for further rehabilitation. She lives by herself and is scared that currently she cannot take care of her ADLs. Case management working on the same. Plan for the day: Hemoglobin has remained stable. No signs of bleeding. 8.8 today. TSH mildly elevated though free T4 is normal. Physical therapy as per primary team. Continue to hold off on home dose of propanol as blood pressures have remained stable. Patient can be discharged home on metoprolol 25 mg as needed twice daily for systolic blood pressure of more than 140/90 mmHg. Otherwise we will continue all other medications as before. Patient stable to be discharged from medical standpoint once safe discharge planning is sought. Medicine will sign off. Please call back with any questions. Thank you for involving us in care of Ms. Lynn. Please call with any questions. Attestations 2 Medical Necessity Statement*: As per primary team. Diagnoses Encounter for postoperative care Z48.89 Asthma J45.909
--- NOTE | 2024-02-17 14:15 | P.PN_ITS ---
Subjective 2 Subjective: Patient seen and examined in the afternoon. She got up with therapy block is worn off and she is having increased pain. Planning for nursing facility at discharge. Hopefully discharge tomorrow possibly. Vitals/I&O/Wt Last Vital Signs Temp 98.2 F 02/17/24 16:00 Pulse 109 H 02/17/24 18:28 Resp 17 02/17/24 16:00 BP 87/45 02/17/24 18:28 Pulse Ox 96 02/17/24 16:00 O2 Del Method Room Air 02/17/24 16:00 02/17/24 02/17/24 02/17/24 06:59 14:59 22:59 Intake Total 480 / 2025.000 240 / 240 500 / 740 Output Total 500 / 500 Balance -20 / 1525.000 240 / 240 500 / 740 Weight last 48 hrs Weight 184 lb 4.8 oz Weight 186 lb 1.6 oz Physical Exam 2 Narrative: Examination of the right lower extremity dressings on in place clean dry and intact compartments are soft and compressible dressings left on in place. Patient has normal postoperative tenderness and swelling about the right knee. DP pulse palpable 2+. Foot warm well-perfused. Sensation intact light touch distally. Patient able to wiggle toes, plantarflex and dorsiflex ankle. Urinary Catheter Management: Fajardo: Cath Placed During This Visit: yes, but has since been removed by the nurse Reason for Continuing Indwelling Catheter: Decision to DC Catheter Date Urinary Catheter Removed: 02/16/24 Time Urinary Catheter Discontinued: 05:38 Data 02/18/24 05:46 02/16/24 05:30 A&P Assessment and plan (1) Status post total right knee replacement using cement: Plan A.m. labs reviewed Weightbearing as tolerated right lower extremity Pain control DVT prophylaxis PT/OT Discharge planning?planning for SNF placement as patient age and no help at home. Attestations 2 Medical Necessity Statement*: Ongoing care status post total knee arthroplasty Coding Level of Care Code Acute Code for Chg Fwd Diagnoses Status post total right knee replacement using cement Z96.651
[2024-02-17] MEDS: sodium chloride 0.9% 500 ML 250 ML IV (16:39)
[2024-02-17 17:23] LABS: Hematocrit 28.7 % (36-47)
[2024-02-17] MEDS: ketorolac 30 mg/mL INJ 15 MG IVP (18:22)
[2024-02-17] MEDS: atorvastatin 40 mg Tablet PO (20:44)
[2024-02-18] VITALS (15 sets, daily range): BP systolic 84–166; BP diastolic 57–82; PULSE 80–101; RESP 16–19; TEMP 36.6–37.9; O2SAT 93–97
[2024-02-18] MEDS: oxyCODONE 5 mg IR Tab/Cap PO (04:36)
[2024-02-18 06:08] LABS: Basophils % 0.3 %; Eosinophils # 0.2 10^3/uL (0.0-0.8); Eosinophils % 1.8 %; Lymphocytes # 1.7 10^3/uL (0.8-4.8); Lymphocytes % 17.9 %; Mean Corpuscular HGB Conc 32.1 g/dL (30-55); Mean Corpuscular Hemoglobin 29.8 pg (27-33); Mean Platelet Volume 11.7 fL (7.4-10.4); Neutrophils # 6.45 10^3/uL (1.8-7.7); Neutrophils % 68.4 %; Nucleated Red Blood Cells % 0 %; Platelet Count 162 10^3/cmm (157-399); Red Blood Count 2.58 10^6/uL (3.85-5.65); Red Cell Distribution Width 15.2 % (12.1-15.1); White Blood Count 9.44 10^3/uL (3.29-11.43)
[2024-02-18 06:26] LABS: Magnesium 1.8 mg/dL (1.7-2.3)
[2024-02-18] MEDS: calcium carb-vit d 600mg/400unit 1 Tablet 1 EACH PO ×2 (08:37→17:30)
[2024-02-18] MEDS: docusate sodium 100 mg Capsule PO ×2 (08:37→17:31)
[2024-02-18] MEDS: iron polysaccharide complex 150 mg Capsule PO ×2 (08:37→17:30)
[2024-02-18] MEDS: pantoprazole DR 40 mg Tablet PO (08:37)
[2024-02-18] MEDS: multivitamin therapeutic Tablet 1 TAB PO (08:37)
[2024-02-18] MEDS: apixaban 5 mg Tablet 2.5 MG PO ×2 (08:37→17:31)
[2024-02-18] MEDS: BuSPIRONE 10 mg Tablet 7.5 MG PO (08:38)
[2024-02-18] MEDS: mupirocin oint 22 gm 1 APPLIC NASAL ×2 (08:39→17:30)
[2024-02-18] MEDS: chlorhexidine gluconate 0.12% Btl 473 mL 30 ML MUCOUS MEM ×4 (08:39→21:17)
[2024-02-18] MEDS: HYDROmorphone 1 mg/mL INJ 1 mL 0.5 MG IVP (08:43)
[2024-02-18] MEDS: TRAMadol 50 mg Tablet PO ×2 (11:53→16:36)
--- NOTE | 2024-02-18 12:06 | P.PN_ITS ---
Subjective 2 Subjective: Patient seen and examined this afternoon. Hemoglobin has dropped below 8 is at 7.7 today her compartments are soft compressible dressing is clean dry and intact distal pulses are palpable at this point time given her age and risk factors she will receive 1 unit PRBC per internal medicine team. Will need to monitor for another day see how she responds to transfusion as well as working with therapy. Patient understands agrees with current plan. Questions answered. Vitals/I&O/Wt Last Vital Signs Temp 100.2 F H 02/18/24 11:32 Pulse 99 02/18/24 11:32 Resp 16 02/18/24 11:32 BP 86/64 02/18/24 11:32 Pulse Ox 97 02/18/24 11:32 O2 Del Method Room Air 02/18/24 11:32 02/17/24 02/18/24 02/18/24 22:59 06:59 14:59 Intake Total 620 / 860 240 / 240 Output Total 600 / 600 Balance 20 / 260 240 / 240 Weight last 48 hrs Weight 184 lb 4.8 oz Weight 184 lb 4.8 oz Physical Exam 2 Narrative: Examination of the right lower extremity dressings have been removed and patient's jt dressings on in place with good seal no evidence of saturation. Intact compartments are soft and compressible dressings left on in place. Patient has normal postoperative tenderness and swelling about the right knee. DP pulse palpable 2+. Foot warm well-perfused. Sensation intact light touch distally. Patient able to wiggle toes, plantarflex and dorsiflex ankle. Urinary Catheter Management: Fajardo: Cath Placed During This Visit: yes, but has since been removed by the nurse Reason for Continuing Indwelling Catheter: Decision to DC Catheter Date Urinary Catheter Removed: 02/16/24 Time Urinary Catheter Discontinued: 05:38 Data 02/18/24 05:46 02/16/24 05:30 A&P Assessment and plan (1) Status post total right knee replacement using cement: Plan A.m. labs reviewed hemoglobin 7.7 will receive 1 unit PRBC by hospitalist team Weightbearing as tolerated right lower extremity Pain control DVT prophylaxis PT/OT Discharge planning?planning for SNF placement as patient age and no help at home. Will continue to monitor after she has transfusion and recheck on her tomorrow after she is work with therapy and recheck her H&H. Attestations 2 Medical Necessity Statement*: Ongoing postoperative care status post total knee arthroplasty receiving 1 unit PRBC for postoperative anemia Coding Level of Care Code Acute Code for Chg Fwd Diagnoses Status post total right knee replacement using cement Z96.651
[2024-02-18 17:39] LABS: Hematocrit 27.9 % (36-47)
--- NOTE | 2024-02-18 17:41 | P.PN_ITS ---
Subjective 2 Subjective: Overnight patient has remained hemodynamically stable but continues to remain orthostatically positive. Today morning had mild dizziness during physical therapy. Week as per PT evaluation and the nursing taking care of the patient. Otherwise patient has remained hemodynamically stable and afebrile. Patient requiring IV pain medications every 4 hours. Vitals/I&O/Wt Last Vital Signs Temp 98.1 F 02/18/24 15:20 Pulse 86 02/18/24 15:20 Resp 16 02/18/24 15:20 BP 105/72 02/18/24 15:20 Pulse Ox 97 02/18/24 15:20 O2 Del Method Room Air 02/18/24 15:20 02/18/24 02/18/24 02/18/24 06:59 14:59 22:59 Intake Total 480 / 480 350 / 830 Balance 480 / 480 350 / 830 Weight last 48 hrs Weight 83.597 kg Weight 83.597 kg Physical Exam 2 Narrative: General: No acute distress, AO x3 HEENT: PERRLA, pupils bilaterally equal and reactive Chest: Normal vesicular breath sounds, no added sounds, equal good air entry bilaterally CVS: S1-S2 regular, no murmurs, no tachycardia, no gallops, no rubs Abdomen: Soft, nontender, no organomegaly, bowel sounds present Neuro: No focal deficits, no facial deformity, AO x3, power 5/5 in all limbs Urinary Catheter Management: Fajardo: Cath Placed During This Visit: yes, but has since been removed by the nurse Reason for Continuing Indwelling Catheter: Decision to DC Catheter Date Urinary Catheter Removed: 02/16/24 Time Urinary Catheter Discontinued: 05:38 Data 02/18/24 17:31 02/16/24 05:30 A&P Assessment and plan (1) Encounter for postoperative care: Hemoglobin down to 8.5 today. Repeat hemoglobin in a.m. for further management. Target hemoglobin more than 8. If needed will transfuse PRBC. Perioperative antibiotics, pain medication as per primary team. Eliquis for DVT prophylaxis. Continue physical therapy. Keep mean artery pressure over 65 with goal blood pressure less than 140/90 mmHg. Oxygen supplementation keeping saturation over 92%. (2) Asthma: Currently on room air. DuoNeb as needed. (3) Postoperative anemia: (4) Orthostatic hypotension: Plan Hypertension: Goal blood pressure less than 140/90 mmHg. Blood pressure is borderline for now. Hold off on home dose of propranolol. Will restart as per blood pressures. As per family ember patient's blood pressures are usually on the softer side during the day but gets elevated on ambulation. She takes propranolol on as needed basis. Full code Regular diet when okay with primary team. Eliquis when okay with primary team for DVT prophylaxis Protonix OPD prophylaxis Discharge planning: Patient wants to go to SNF for further rehabilitation. She lives by herself and is scared that currently she cannot take care of her ADLs. Case management working on the same. Plan for the day: Hemoglobin down to 7.7 today. Patient is hemodynamically unstable with positive orthostasis and symptomatic. Transfuse 1 unit of PRBC. Monitor orthostatic every shift. Continue to hold off on propranolol. Plan will be to discharge on amlodipine 5 mg as needed for systolic blood pressure more than 140/90 mmHg. Repeat H&H after transfusion and CBC in AM. Restrict IV pain medications given symptomatic hypotension. Continue with oxycodone every 6 hours as needed, favor tramadol or oxycodone. Medicine will continue to follow. Thank you for involving us in care of Ms. Lynn. Please call with any questions. Attestations 2 Medical Necessity Statement*: Requires further hospitalization for postoperative anemia leading to positive orthostatic symptoms while safe discharge planning is sought for postoperative care Diagnoses Encounter for postoperative care Z48.89 Asthma J45.909 Postoperative anemia D64.9 Orthostatic hypotension I95.1
[2024-02-18] MEDS: atorvastatin 40 mg Tablet PO (21:17)
[2024-02-18] MEDS: zolpidem 5 mg Tablet 10 MG PO (21:17)
[2024-02-19] VITALS: BP 107/71; PULSE 107; RESP 18; TEMP 36.6; O2SAT 95
[2024-02-19 04:00] VITALS: BP 163/72; PULSE 85; RESP 18; TEMP 36.7; O2SAT 93
[2024-02-19 05:16] LABS: Basophils % 0.3 %; Eosinophils # 0.2 10^3/uL (0.0-0.8); Eosinophils % 2.1 %; Hematocrit 25.6 % (36-47); Lymphocytes # 1.8 10^3/uL (0.8-4.8); Mean Corpuscular HGB Conc 32.8 g/dL (30-55); Mean Corpuscular Hemoglobin 29.2 pg (27-33); Mean Corpuscular Volume 88.9 fl (85-98); Mean Platelet Volume 11.8 fL (7.4-10.4); Monocytes # 1.1 10^3/uL (0.2-0.9); Monocytes % 10.5 %; Neutrophils # 7.21 10^3/uL (1.8-7.7); Neutrophils % 69.7 %; Nucleated Red Blood Cells % 0 %; Platelet Count 177 10^3/cmm (157-399); Red Blood Count 2.88 10^6/uL (3.85-5.65); Red Cell Distribution Width 17.3 % (12.1-15.1); White Blood Count 10.35 10^3/uL (3.29-11.43)
[2024-02-19 05:29] LABS: Alanine Aminotransferase < 5 U/L (0-33); Alkaline Phosphatase 59 U/L (35-105); Anion Gap 13.5 (5-19); Aspartate Amino Transferase 14 U/L (0-32); Blood Urea Nitrogen 16 mg/dL (8-23); Calcium 8.9 mg/dL (8.5-10.5); Carbon Dioxide 26 mmol/L (22-29); Chloride 100 mmol/L (98-107); Creatinine Clr Calc Pharmacy 48.8281; Globulin 2.6 g/dL (1.3-4.6); Glucose 121 mg/dL (65-115); Osmolality Calculated 284 mOsm/kg (285-295); Potassium 3.5 mmol/L (3.5-5.1); Sodium 136 mmol/L (136-145); Total Bilirubin 0.5 mg/dL (0.15-1.2); Total Protein 5.6 g/dL (6.6-8.7)
[2024-02-19 08:00] VITALS: BP 106/75; PULSE 107; RESP 16; TEMP 36.4; O2SAT 95
[2024-02-19 09:17] LABS: SARS Covid-2 Antigen negative (Negative)
[2024-02-19] MEDS: calcium carb-vit d 600mg/400unit 1 Tablet 1 EACH PO (09:26)
[2024-02-19] MEDS: TRAMadol 50 mg Tablet PO (09:27)
[2024-02-19] MEDS: BuSPIRONE 10 mg Tablet 7.5 MG PO (09:27)
[2024-02-19] MEDS: multivitamin therapeutic Tablet 1 TAB PO (09:27)
[2024-02-19] MEDS: apixaban 5 mg Tablet 2.5 MG PO (09:27)
[2024-02-19] MEDS: iron polysaccharide complex 150 mg Capsule PO (09:27)
[2024-02-19] MEDS: pantoprazole DR 40 mg Tablet PO (09:28)
[2024-02-19] MEDS: docusate sodium 100 mg Capsule PO (09:28)
[2024-02-19] MEDS: chlorhexidine gluconate 0.12% Btl 473 mL 30 ML MUCOUS MEM (09:30)
[2024-02-19] MEDS: mupirocin oint 22 gm 1 APPLIC NASAL (09:30)
[2024-02-19 10:00] VITALS: BP 154/68; BP 83/61; BP 96/63
--- NOTE | 2024-02-19 11:09 | P.PN_ITS ---
Subjective 2 Subjective: No acute vents overnight. Patient has remained hemodynamically stable and afebrile. Blood pressure better controlled. Patient continues to remain orthostatic though asymptomatic now. Complaining of pain Vitals/I&O/Wt Last Vital Signs Temp 97.6 F 02/19/24 08:00 Pulse 107 H 02/19/24 08:00 Resp 16 02/19/24 08:00 BP 106/75 02/19/24 08:00 Pulse Ox 95 02/19/24 08:00 O2 Del Method Room Air 02/19/24 04:00 02/18/24 02/19/24 02/19/24 22:59 06:59 14:59 Intake Total 350 / 830 240 / 240 Balance 350 / 830 240 / 240 Weight last 48 hrs Weight 83.546 kg Weight 83.597 kg Physical Exam 2 Narrative: General: No acute distress, AO x3 HEENT: PERRLA, pupils bilaterally equal and reactive Chest: Normal vesicular breath sounds, no added sounds, equal good air entry bilaterally CVS: S1-S2 regular, no murmurs, no tachycardia, no gallops, no rubs Abdomen: Soft, nontender, no organomegaly, bowel sounds present Neuro: No focal deficits, no facial deformity, AO x3, power 5/5 in all limbs Urinary Catheter Management: Fajardo: Cath Placed During This Visit: yes, but has since been removed by the nurse Reason for Continuing Indwelling Catheter: Decision to DC Catheter Date Urinary Catheter Removed: 02/16/24 Time Urinary Catheter Discontinued: 05:38 Data 02/19/24 04:30 02/19/24 04:30 A&P Assessment and plan (1) Encounter for postoperative care: Hemoglobin down to 8.5 today. Repeat hemoglobin in a.m. for further management. Target hemoglobin more than 8. If needed will transfuse PRBC. Perioperative antibiotics, pain medication as per primary team. Eliquis for DVT prophylaxis. Continue physical therapy. Keep mean artery pressure over 65 with goal blood pressure less than 140/90 mmHg. Oxygen supplementation keeping saturation over 92%. (2) Asthma: Currently on room air. DuoNeb as needed. (3) Postoperative anemia: (4) Orthostatic hypotension: Plan Hypertension: Goal blood pressure less than 140/90 mmHg. Blood pressure is borderline for now. Hold off on home dose of propranolol. Will restart as per blood pressures. As per family ember patient's blood pressures are usually on the softer side during the day but gets elevated on ambulation. She takes propranolol on as needed basis. Full code Regular diet when okay with primary team. Eliquis when okay with primary team for DVT prophylaxis Protonix OPD prophylaxis Discharge planning: Patient wants to go to SNF for further rehabilitation. She lives by herself and is scared that currently she cannot take care of her ADLs. Case management working on the same. Plan for the day: Hemoglobin stable. Still orthostatic but not symptomatic. Continue to hold off on antihypertensives. Patient would benefit with compression stockings. If needed can add pyridostigmine. Repeat CBC in 1 week. Continue with fall precautions. Patient can be discharged from medical standpoint. Please discharge cough antihypertensives. Patient should have a repeat CBC in 1 week. Continue fall precautions as an outpatient. Patient should also be discharged on compression stockings. Thank you for involving us in care of Ms. Lynn. Please call with any questions. Attestations 2 Medical Necessity Statement*: As per primary team. Diagnoses Encounter for postoperative care Z48.89 Asthma J45.909 Postoperative anemia D64.9 Orthostatic hypotension I95.1
[2024-02-19 12:00] VITALS: BP 104/73; PULSE 90; RESP 16; TEMP 36.7; O2SAT 96
--- NOTE | 2024-02-19 12:11 | P.DS_ITS ---
Discharge Providers Date of Admission: 02/16/24 11:14 Date of Discharge: February 19, 2024 Attending Provider at Admission: Rashad Martinez DO Attending Provider at Discharge: Rashad Martinez DO Consults: hospitalist-Dr Churchill Primary Care Provider: GALINA Emanuel Diagnoses at Discharge Discharge Diagnosis (1) Encounter for postoperative care: Status: Acute (2) Asthma: Status: Acute (3) Postoperative anemia: Status: Acute (4) Orthostatic hypotension: Status: Acute Reason for Visit Reason for Visit: M17.11 Brief History: Status post right total knee arthroplasty Hospital Course Hospital Course Patient presented to the preoperative holding area with plan for right total knee arthroplasty after patient has been worked up in the outpatient setting for failed conservative treatment of [right ] knee degenerative joint disease. Once cleared by anesthesia for surgery patient subsequently was taken back to the operative suite underwent anesthesia per anesthesia department and then subse quently underwent a [ right] total knee arthroplasty. Procedure was performed without any complications patient was taken to PACU in stable condition patient recovered well in PACU and then was admitted to the floor postoperatively internal medicine was consulted and on board for medical management and assistance with care. Patient received appropriate PT/OT, postoperative antibiotics, postoperative TXA, pain control, postoperative DVT prophylaxis. Elevation and ice. Patient encouraged for knee range of motion allowed weightbearing as tolerated to the operative lower extremity. Dressing was changed as needed, labs were monitored daily. Patient recovered well postoperatively and worked well and progressed well with therapy. [Patient hemoglobin did drop to lowest of 7.7 given her age and comorbidities underwent 1 unit PRBC per hospitalist. Patient given age as well as no help at home elected for long-term facility. She progressed appropriately throughout the hospitalization through therapy.]. It was determined on postoperative day [ 4] the patient was stable for discharge from an orthopedic standpoint and medicine. Patient was comfortable with discharge and plan was discharged SNF. Patient received appropriate discharge instructions as well as pain medication and DVT prophylaxis postoperatively. Given appropriate instructions for dressing management. Patient will follow-up with Dr. Martinez/orthopedics in the office in 2 weeks. All questions answered. Understand if there is any issues questions or concerns and contact the office. Physical Exam Narrative: Examination of the right lower extremity dressings have been removed and patient's carla dressings on in place with good seal no evidence of saturation. Intact compartments are soft and compressible dressings left on in place. Patient has normal postoperative tenderness and swelling about the right knee. DP pulse palpable 2+. Foot warm well-perfused. Sensation intact light touch distally. Patient able to wiggle toes, plantarflex and dorsiflex ankle. Urinary Catheter Management: Fajardo: Cath Placed During This Visit: yes, but has since been removed by the nurse Reason for Continuing Indwelling Catheter: Decision to DC Catheter Date Urinary Catheter Removed: 02/16/24 Time Urinary Catheter Discontinued: 05:38 Discharge Data Studies Completed and Pending Completed Studies During Hospitalization Category Date Time Status XR knee RT 1-2V 80981 Routine Exams 02/15/24 14:35 Completed Radiology Impressions Knee X-Ray 02/15/24 14:35 IMPRESSION: No hardware complication. Laboratory Results WBC 10.35 10^3/uL (3.29-11.43) 02/19/24 04:30 RBC 2.88 10^6/uL (3.85-5.65) L 02/19/24 04:30 Hgb 8.40 g/dL (11.27-16.99) L 02/19/24 04:30 Hct 25.6 % (36-47) L 02/19/24 04:30 MCV 88.9 fl (85-98) 02/19/24 04:30 MCH 29.2 pg (27-33) 02/19/24 04:30 MCHC 32.8 g/dL (30-55) 02/19/24 04:30 RDW 17.3 % (12.1-15.1) H 02/19/24 04:30 Plt Count 177 10^3/cmm (157-399) 02/19/24 04:30 MPV 11.8 fL (7.4-10.4) H 02/19/24 04:30 Neut % (Auto) 69.7 % 02/19/24 04:30 Lymph % (Auto) 17.0 % 02/19/24 04:30 Weak[place] % (Auto) 10.5 % 02/19/24 04:30 Eos % (Auto) 2.1 % 02/19/24 04:30 Baso % (Auto) 0.3 % 02/19/24 04:30 Neut # (Auto) 7.21 10^3/uL (1.8-7.7) 02/19/24 04:30 Lymph # (Auto) 1.8 10^3/uL (0.8-4.8) 02/19/24 04:30 Weak[place] # (Auto) 1.1 10^3/uL (0.2-0.9) H 02/19/24 04:30 Eos # (Auto) 0.2 10^3/uL (0.0-0.8) 02/19/24 04:30 Baso # (Auto) 0.0 10^3/uL (0.0-0.1) 02/19/24 04:30 Nucleated RBC % (auto) 0 % 02/19/24 04:30 Nucleated RBCs # 0.0 /100WBC 02/19/24 04:30 Sodium 136 mmol/L (136-145) 02/19/24 04:30 Potassium 3.5 mmol/L (3.5-5.1) 02/19/24 04:30 Chloride 100 mmol/L (98-107) 02/19/24 04:30 Carbon Dioxide 26 mmol/L (22-29) 02/19/24 04:30 Anion Gap 13.5 (5-19) 02/19/24 04:30 BUN 16 mg/dL (8-23) 02/19/24 04:30 Creatinine 0.6 mg/dL (0.5-0.9) 02/19/24 04:30 GFR Calculation Not Reportable 02/19/24 04:30 Glucose 121 mg/dL (65-115) H 02/19/24 04:30 Estimat Average Glucose 103 02/16/24 05:30 Hemoglobin A1c 5.2 % (4.0-6.0) 02/16/24 05:30 Calculated Osmolality 284 mOsm/kg (285-295) L 02/19/24 04:30 Calcium 8.9 mg/dL (8.5-10.5) 02/19/24 04:30 Magnesium 1.8 mg/dL (1.7-2.3) 02/18/24 05:46 Iron 95 ug/dL (37-145) 02/15/24 10:35 TIBC 390 mcg/dl 02/15/24 10:35 % Saturation 24.3 % (20-50) 02/15/24 10:35 Unsat Iron Binding 295 ug/dL (112-347) 02/15/24 10:35 Total Bilirubin 0.5 mg/dL (0.15-1.2) 02/19/24 04:30 AST 14 U/L (0-32) 02/19/24 04:30 ALT < 5 U/L (0-33) 02/19/24 04:30 Alkaline Phosphatase 59 U/L (35-105) 02/19/24 04:30 Total Protein 5.6 g/dL (6.6-8.7) L 02/19/24 04:30 Albumin 3.0 g/dL (3.5-5.2) L 02/19/24 04:30 Globulin 2.6 g/dL (1.3-4.6) 02/19/24 04:30 Vitamin B12 960 pg/mL (232-1245) 02/15/24 10:35 Folate 18.5 ng/mL (4.8-37.3) 02/16/24 05:30 TSH 4.83 uIU/mL (0.27-4.20) H 02/15/24 10:35 Free T4 1.28 ng/dL (0.82-1.77) 02/16/24 05:30 Free T3 1.5 PG/ML (2.0-4.4) L 02/16/24 05:30 SARS-CoV-2 Ag (Rapid) negative (Negative) 02/19/24 08:40 Blood Type A Positive 02/15/24 10:35 Rho(D) Type Rh positive 02/15/24 10:35 Antibody Screen Negative 02/15/24 10:35 Crossmatch See Detail 02/15/24 10:35 Vitals Last Vital Signs Temp 97.6 F 02/19/24 08:00 Pulse 107 H 02/19/24 08:00 Resp 16 02/19/24 08:00 BP 96/63 02/19/24 10:00 Pulse Ox 95 02/19/24 08:00 O2 Del Method Room Air 02/19/24 04:00 Discharge Plan Discharge Patient Disposition: Xfer SNF Condition: Stable Prescriptions: New Eliquis 2.5 mg tablet 2.5 mg PO BID 14 Days Qty: 28 0RF amlodipine 5 mg tablet 5 mg PO DAILY PRN (Reason: SBP more than 160 mmhg) Qty: 10 0RF oxycodone 5 mg tablet 5 mg PO Q6H PRN (Reason: pain postop) 7 Days Qty: 28 0RF Continued acetaminophen 325 mg capsule 325 mg PO QID PRN (Reason: Pain) buspirone 7.5 mg tablet 7.5 mg PO DAILY Qty: 90 1RF Prolia 60 mg/mL syringe 60 mg SUBCUT .every six months Qty: 1 0RF Rx Instructions: to be administered at [facility] olopatadine 0.1 % drops See Rx Instructions .ROUTE .COMPLEX Qty: 5 0RF Dose Instruction: INSTILL 1 DROP INTO THE EYE(S) TWICE DAILY AT LEAST 6-8 HOURS APART Rx Instructions: INSTILL 1 DROP INTO THE EYE(S) TWICE DAILY AT LEAST 6-8 HOURS APART NEEDED multivitamin Tablet 1 tab PO DAILY zinc acetate 50 mg (zinc) Capsule 50 mg PO DAILY simvastatin 10 mg tablet 10 mg PO QAM calcium carbonate 500 mg calcium (1,250 mg) Tablet 500 mg PO DAILY esomeprazole magnesium 40 mg capsule,delayed release(DR/EC) 40 mg PO QAM zolpidem 10 mg tablet 10 mg PO BEDTIME PRN (Reason: Sleep) magnesium oxide 400 mg magnesium Tablet 400 mg PO DAILY Detrol LA 4 mg capsule,extended release 24hr 4 mg PO QAM Klor-Con M20 20 mEq tablet,ER particles/crystals 20 meq PO QAM Singulair 10 mg tablet 10 mg PO QAM Discontinued propranolol 80 mg capsule,extended release 24 hr 80 mg PO QAM No Action (DME) rollator walker See Rx Instructions .Route .MEDSUPPLY Qty: 1 0RF Rx Instructions: As directed (DME) Hinged Knee Brace See Rx Instructions .Route .MEDSUPPLY Qty: 1 0RF Rx Instructions: As directed Discharge Orders: Discharge Order (Routine); Ordered 02/19/24 Ordered By: Rashad Martinez Referrals: [facility] [Other] Rashad Martinez DO [Physician] - 03/01/24 2:30 pm Discharge Diet: Regular Discharge Activity: Limit activity as instructed Activity Restrictions/Additional Instructions: Carla Dressing--Keep dressing on and dry. After 3 days you can remove some of the dressing and shower. disconnect battery pack when showering. Carla dressing will stay on until follow up appt in 2 weeks. The battery pack for the dressing will at 5-7 days. Battery pack can be removed and discarded once batteries . Patient may weight-bear as tolerate to the operative extremity Utilize crutches as needed Encourage knee range of motion Ice and elevate as needed for pain and swelling Take pain medication as prescribed Take antinausea medication as needed The prescribed Eliquis twice daily for the next 14 days for blood clot prevention May supplement for pain with ibuprofen [id number] as needed No baths or soaks Follow-up in the orthopedic office in 2 weeks Contact the office for any questions or concerns Repeat CBC in 1 week. Continue with fall precautions. Continue to use compression stockings. Discharge Attestations Time Spent in Discharge Care*: less than 30 min Quality Metrics Clinical Quality Measures [ No reported AMI, CVA or VTE this stay] Coding Level of Care Code Acute Code for Chg Fwd Diagnoses Encounter for postoperative care Z48.89 Asthma J45.909 Postoperative anemia D64.9 Orthostatic hypotension I95.1 Time Spent (min) 25
--- NOTE | 2024-02-19 12:26 | PC.SOCIAL ---
Pg 2 IMM Explained to pt Pg 2 IMM. No questions voiced. Provided pt a copy. Initialed, dated, & timed a copy & placed in chart.
[2024-02-19] MEDS: oxyCODONE 5 mg IR Tab/Cap PO (12:32)
--- NOTE | 2024-02-19 13:43 | PC.NURSE ---
report called to Armaan at [facility]. Compression stockings applied prior to discharge per Dr. Churchill. pt wheeled down to [employer] vehicle and assisted into car.
[2024-02-19 13:44] VITALS: BP 104/73; PULSE 90; RESP 16; TEMP 36.7; O2SAT 96
== END 2024-02-19 13:00 | disposition skilled nursing facility (03) | DRG 470 ==
LOC: MEDSURG 14:37
PROVIDERS: Physician Assistant; Student in an Organized Health Care Education/Training Program; Admitting Provider Student in an Organized Health Care Education/Training Program; PCP Nurse Practitioner Family; Visit Provider Student in an Organized Health Care Education/Training Program
PROC: 8E0Y0CZ Robotic Assisted Procedure of Lower Extremity, Open Approach (ICD-10-PCS; CPT 27447; principal; 2024-02-15 11:10)
DX: M17.11 Unilateral primary osteoarthritis, right knee (principal); D62 Acute posthemorrhagic anemia; E78.5 Hyperlipidemia, unspecified; J45.909 Unspecified asthma, uncomplicated; K21.9 Gastro-esophageal reflux disease without esophagitis; I10 Essential (primary) hypertension; I95.1 Orthostatic hypotension; Z11.52 Encounter for screening for COVID-19
CPT/HCPCS: 36415; 36430; 73560; 73562; 80048; 80053; 82607; 82746; 83036; 83540; 83550; 83735; 84439; 84443; 84481; 85014; 85018; 85025; 86850; 86900; 86920; 87426; 97110; 97116; 97161; 97167; 97530; 97535; C1776; G0378; J0131; J0171; J0690; J1100; J1170; J1885; J2704; J2795; J7030; J7040; J7120; P9016

== ENCOUNTER → 2024-03-01 14:16 | Outpatient (BNVA) | payer MEDICARE, OTHER, SELFPAY | PROVIDERS: PCP Nurse Practitioner Family; Visit Provider Student in an Organized Health Care Education/Training Program | DX: Z96.651 Presence of right artificial knee joint (principal) | CPT/HCPCS: 73560; 73565; 99024 ==

== ENCOUNTER → 2024-04-12 14:08 | Outpatient (BNVA) | payer MEDICARE, OTHER, SELFPAY | PROVIDERS: PCP Nurse Practitioner Family; Visit Provider Student in an Organized Health Care Education/Training Program | DX: Z96.651 Presence of right artificial knee joint (principal) | CPT/HCPCS: 73560; 73565; 99024 ==

== ENCOUNTER → 2024-04-19 15:48 | Outpatient (BNVA) | payer MEDICARE, OTHER, SELFPAY | PROVIDERS: PCP Nurse Practitioner Family; Visit Provider Nurse Practitioner Family | DX: D64.9 Anemia, unspecified (principal); R53.83 Other fatigue | CPT/HCPCS: 82607; 84443 ==

== ENCOUNTER → 2024-06-08 13:42 | Outpatient (BNVA) | payer MEDICARE, OTHER, SELFPAY | PROVIDERS: PCP Nurse Practitioner Family; Visit Provider Nurse Practitioner Family | DX: I10 Essential (primary) hypertension (principal); R53.83 Other fatigue | CPT/HCPCS: 80053; 80061; 85025 ==